=== PATIENT | female | born 1990 | race African-American/Black ===

== ENCOUNTER 2017-07-17 00:04 | Emergency (ER) | payer MEDICAID ==
[~2017-07-17] VITALS: Ht 160 cm; Wt 77.3 kg
[~2017-07-17 00:04] MED LIST: ALBU17AE27 IH
[2017-07-17 03:35] VITALS: BP 133/89
== END 2017-07-17 03:36 | disposition home or self-care (01) ==
LOC: EMS 00:05
DX: J45.909 Unspecified asthma, uncomplicated (principal); F17.210 Nicotine dependence, cigarettes, uncomplicated; F19.90 Other psychoactive substance use, unspecified, uncomplicated
CPT/HCPCS: 99283